=== PATIENT | male | born 1970 | race Caucasian/White ===

== ENCOUNTER 2020-09-09 10:22 | Emergency (ER) | payer OTHER, SELFPAY ==
--- NOTE | ~2020-09-09 | CT_ITS ---
EXAMINATION: CT abdomen pelvis wo con DATE: 09/09/2020 11:50 INDICATION: Right flank pain. Nephrolithiasis. TECHNIQUE: Computed tomography (CT) of the abdomen and pelvis was performed without intravenous contr ast. Automated exposure control and iterative reconstruction technique were employed. The dose-length product was 235.06 mGy-cm. COMPARISON: 02/26/2012 FINDINGS: Lung bases are clear. The left inferior heart is normal. No pericardial or pleural effusion. Liver, g allbladder, spleen, pancreas, bilateral adrenal glands and left kidney are normal. There is asymmetri c right perinephric stranding. No evident urolithiasis or hydronephrosis. There are few scattered col onic diverticula without adjacent inflammatory change to suggest diverticulitis. Small bowel and appe ndix are normal. The decompressed bladder is unremarkable. There are few phleboliths in the pelvis. N o free intraperitoneal gas or fluid. No pathologically enlarged abdominal or pelvic lymphadenopathy. Bones are unremarkable. IMPRESSION: 1. Right perinephric stranding without evident urolithiasis or hydronephrosis. This could be related to a recently passed stone and/or ascending urinary tract infection. Correlate with urinalysis and fo r any change in right flank pain. Reviewed, dictated and finalized at location A. IMPRESSION: 1. Right perinephric stranding without evident urolithiasis or hydronephrosis. This could be related to a recently passed stone and/or ascending urinary tract infection. Correlate with urinalysis and for any change in right flank pain.
[2020-09-09 10:31] VITALS: BP 141/86; PULSE 52; RESP 20; TEMP 36.4; O2SAT 96
[2020-09-09 10:42] LABS: Basophils Absolute Auto 0.1 K/mm3 (0.0-0.1); Basophils Percent Auto 0.4 % (0.2-1.2); Eosinophils Percent Auto 0.1 % (0-4.4); Hematocrit 41.3 % (42.0-52.0); Hemoglobin 13.7 g/dL (14.0-18.0); Immature Granulocyte Absolute 0.05 K/mm3 (0.00-0.031); Immature Granulocyte Percent A 0.4 % (0-0.5); Lymphocytes Absolute Auto 1.18 K/mm3 (0.9-3.2); Lymphocytes Percent Auto 8.9 % (18.3-44.2); Mean Corpuscular HGB Conc 33.2 g/dl (32-36); Mean Corpuscular Hemoglobin 29.7 pg (26-34); Mean Corpuscular Volume 89.6 fl (80-100); Mean Platelet Volume 9.6 fl (7.4-10.4); Monocytes Absolute Auto 0.6 K/mm3 (0.1-0.6); Monocytes Percent Auto 4.4 % (2.6-8.5); Neutrophils Absolute Auto 11.4 K/mm3 (1.3-6.7); Neutrophils Percent Auto 85.8 % (45.5-73.1); Platelet Count Result 338 k/mm3 (150-375); Red Blood Count 4.61 M/mm3 (4.6-6.20); Red Cell Distribution Width 12.5 % (11.5-14.5); White Blood Count 13.3 K/mm3 (4.5-10.0)
[2020-09-09 10:50] LABS: Anion Gap 6 mmol/L (8-16); Blood Urea Nitrogen 17 mg/dL (9-20); Calcium 9.7 mg/dL (8.4-10.2); Carbon Dioxide 27 mmol/L (22-30); Chloride 105 mmol/L (98-107); Estimated CRCL calculation 81 ml/min; Estimated Glomerular Filt Rate > 60; Glucose 130 mg/dL (75-110); Potassium 4.7 mmol/L (3.4-5.0); Sodium 138 mmol/L (137-145)
[2020-09-09 11:33] LABS: Add Urine Microscopic? YES; Appearance Urine Cloudy (Clear); Bilirubin Urine Negative (Negative); Blood Urine 3+ (Negative); Color Urine Yellow (Yellow); Glucose Urine UA Negative (Negative); Ketones Urine Negative (Negative); Leukocyte Esterase Ur Negative LEU/UL (Negative); Mucus Urine Moderate /lpf; Nitrate Urine Negative (Negative); Protein Urine 2+ mg/dL (Negative); RBC Urine >75 /hpf (0-2); Specific Grav Ur 1.019 (1.001-1.035); Squamous Epithelial Cell Urine Rare /hpf (Few); Urobilinogen Urine Negative mg/dL (<2.0)
--- NOTE | 2020-09-09 12:00 | ED.GENADULT ---
HPI - General Adult General Chief complaint: Abdominal Pain Stated complaint: right flank pain, vomiting Time Seen by Provider: 09/09/20 11:27 Source: patient History of Present Illness HPI narrative: Patient is a 50 y/o male complaining of right flank pain since 4:00 AM this morning. He describes his pain as a continuous dull pain with radiation to right groin. He rates his pain as 7/10. He took Ibuprofen, but it did not help. He also has some vomiting and feels like his bladder is madyson. He has previous history of kidney stone. Related Data Allergies Allergy/AdvReac Type Severity Reaction Status Date / Time codeine Allergy Unknown Vomiting Verified 09/09/20 10:33 Sulfa (Sulfonamide Allergy Unknown Hives Verified 09/09/20 10:33 Antibiotics) TIME RELEASE COLD MEDICINE Allergy Intermediate Rash Uncoded 09/09/20 10:33 Review of Systems Constitutional: Constitutional: Denies chills, Denies fever(s), Denies headache(s) and Denies weakness Eyes: Eyes: Denies blurry vision ENT: Denies headache(s) and Denies neck pain Cardiovascular: Cardiovascular: Denies chest pain and Denies dyspnea Respiratory: Respiratory: Denies cough and Denies dyspnea Gastrointestinal: Gastrointestinal: Denies abdominal pain, Denies diarrhea, Reports nausea and Reports vomiting Genitourinary: Genitourinary: Denies hematuria, Denies dysuria and Reports flank pain Musculoskeletal: Musculoskeletal: Denies back pain and Denies neck pain Neurologic: Denies headache(s) and Denies weakness PMFSH Past Medical History Medical History Anxiety Depression Family History Family History Mother Diabetes mellitus Father Hypertension Social History Social History Smoking status: Never smoker Second hand tobacco smoke exposure: No Alcohol intake: current Substance use: never Gender identity (if verbalized by the patient): Male Exam Const: General: no acute distress and well developed Orientation/consciousness: oriented to person, oriented to place, oriented to time and patient oriented x3 HENMT: Head: normocephalic Ears: external ears normal General nose exam: Normal external nose present Eyes: General: appearance normal, both eyes and all related structures Conjunctivae: conjunctivae normal Neck: Neck: normal visual inspection and full ROM Chest: Chest palpation & inspection: normal inspection of the chest and no tenderness Resp: Effort & Inspection: normal respiratory effort Auscultation: clear to auscultation bilaterally Cardio: Rate: regular rate Rhythm: regular rhythm GI: GI Palp: No abdominal tenderness and Yes Soft to palpation Skin: General skin exam: normal color and turgor normal Neuro: General: oriented to person, oriented to place, oriented to time and patient oriented x3 Cognition (Neuro): normal cognition Extrem: General: normal to inspection, full ROM and no pedal edema Psych: Appearance: grossly normal Mental Status: mental status grossly normal Affect: normal affect Course Reevaluation(s) Reevaluation #1: Rechecked. Patient feels better and he rates his pain as 2/10. Informed patient that he likely had stone that passed already. Date: 09/09/20 Time: 13:11 Vital Signs Vital signs: Vital Signs Temperature 36.4 C 09/09/20 10:31 Pulse Rate 52 L 09/09/20 10:31 Respiratory Rate 20 09/09/20 10:31 Blood Pressure 141/86 H 09/09/20 10:31 Pulse Oximetry 96 09/09/20 10:31 Temperature 36.4 C 09/09/20 10:31 Pulse Rate 78 09/09/20 13:32 Respiratory Rate 18 09/09/20 13:32 Blood Pressure 122/78 09/09/20 13:32 Pulse Oximetry 99 09/09/20 13:32 Medical Decision Making Vital Signs Vital Signs: Vital Signs Temperature 36.4 C 09/09/20 10:31 Pulse Rate 52 L 09/09/20 10:31 Respiratory Rate 20 09/09/20 10:3
[2020-09-09] MEDS: KETOROLAC 30 MG/ML VIAL (*BKC) IV PUSH (12:09)
[2020-09-09] MEDS: SODIUM CHLORIDE 0.9% IV 1,000 ML 999 ML IV CONT (12:09)
[2020-09-09] MEDS: METOCLOPRAMIDE HCL INJ 10 MG/2 ML VIAL IV PUSH (12:09)
[2020-09-09 13:32] VITALS: BP 122/78; PULSE 78; RESP 18; O2SAT 99
== END 2020-09-09 13:33 | disposition home or self-care (01) ==
PROVIDERS: Emergency Medicine; Emergency Provider Emergency Medicine; PCP Family Medicine
DX: N20.0 Calculus of kidney (principal)
CPT/HCPCS: 36415; 74176; 80048; 81001; 85025; 87086; 96361; 96374; 96375; 99284; J1885; J2765; J7030